=== PATIENT | female | born 1950 | race Caucasian/White ===

== ENCOUNTER 2017-08-24 05:45 | Emergency (ER) | payer MEDICARE ==
[~2017-08-24] VITALS: Ht 157.5 cm; Wt 78.3 kg
[2017-08-24 05:50] VITALS: BP 142/80
[2017-08-24] MEDS ORDERED: AZIT250T PO (06:10)
== END 2017-08-24 06:29 | disposition home or self-care (01) ==
LOC: ER 05:45
DX: R05 Cough (principal); R68.89 Other general symptoms and signs; J00 Acute nasopharyngitis [common cold]; E03.9 Hypothyroidism, unspecified; G89.29 Other chronic pain; Z88.5 Allergy status to narcotic agent; Z88.8 Allergy status to other drugs, medicaments and biological substances; Z79.899 Other long term (current) drug therapy
CPT/HCPCS: 99283

== ENCOUNTER 2018-10-22 19:06 | Emergency (ER) | payer MEDICARE ==
[~2018-10-22] VITALS: Ht 157.5 cm; Wt 70.9 kg
[~2018-10-22 19:06] MED LIST: AZIT250T PO
[2018-10-22 21:03] VITALS: BP 171/73
[2018-10-22] MEDS ORDERED: IBUP-1984 PO (22:50)
== END 2018-10-22 23:20 | disposition home or self-care (01) ==
LOC: ER 19:06
DX: S70.12XA Contusion of left thigh, initial encounter (principal); S40.022A Contusion of left upper arm, initial encounter; M54.5 Low back pain; E03.9 Hypothyroidism, unspecified; G89.29 Other chronic pain; Z88.6 Allergy status to analgesic agent; W18.30XA Fall on same level, unspecified, initial encounter; Y93.89 Activity, other specified; Y92.89 Other specified places as the place of occurrence of the external cause; Y99.8 Other external cause status
CPT/HCPCS: 73060; 73552; 99283

== ENCOUNTER 2022-08-20 09:27 | Emergency (ER) | payer OTHER ==
[~2022-08-20] VITALS: Ht 157.5 cm; Wt 70.0 kg
[2022-08-20 09:34] VITALS: BP 151/70
[2022-08-20] MEDS ORDERED: IBUP-1985 PO (12:21)
== END 2022-08-20 12:13 | disposition home or self-care (01) ==
LOC: ER 09:29
DX: S46.812A Strain of other muscles, fascia and tendons at shoulder and upper arm level, left arm, initial encounter (principal); X58.XXXA Exposure to other specified factors, initial encounter; Y93.89 Activity, other specified; Y92.89 Other specified places as the place of occurrence of the external cause; Y99.8 Other external cause status
CPT/HCPCS: 73030; 99283

== ENCOUNTER 2024-01-21 05:39 | Day surgery (SDC) | payer OTHER ==
[2024-01-12 11:36] LABS: BASOPHILS # (AUTO) 0.1 X10'3 (0-0.2); BASOPHILS % (AUTO) 0.7 % (0-1); EOSINOPHILS # (AUTO) 0.3 X10'3 (0-0.9); EOSINOPHILS % (AUTO) 3.2 % (0-6); LYMPHOCYTES % (AUTO) 21.3 % (21-51); MEAN CORPUSCULAR HEMOGLOBIN 28.1 PG (27.0-31.0); MEAN CORPUSCULAR HGB CONC 32.2 g/dL (33.0-36.5); MEAN CORPUSCULAR VOLUME 87.3 FL (78-98); MEAN PLATELET VOLUME 7.1 FL (7.4-10.4); NEUTROPHILS # (AUTO) 6.2 X10'3 (1.8-7.7); NEUTROPHILS % (AUTO) 64.8 % (42-75); PRE OP HEMATOCRIT 38.1 % (35.0-45.0); PRE OP HEMOGLOBIN 12.3 g/dL (12.0-16.0); PRE OP PLATELET COUNT 322 X10'3 (140-440); PRE OP WHITE BLOOD COUNT 9.6 10'3 (4.8-10.8); RED BLOOD COUNT 4.36 X10'6 (4.20-5.60); RED CELL DISTRIBUTION WIDTH 16.4 % (11.5-14.5)
[2024-01-12 11:37] LABS: BILIRUBIN,URINE NEGATIVE (Neg); CLARITY,URINE CLOUDY (Clear); COLOR,URINE YELLOW (Yellow); GLUCOSE, URINE NEGATIVE (Neg); KETONES,URINE TRACE mg/dl (Neg); LEUKOCYTE ESTERASE ,URINE MODERATE (Neg); NITRITES, URINE NEGATIVE (Neg); OCCULT BLOOD,URINE NEGATIVE (Neg); PROTEIN,URINE NEGATIVE (Neg); UROBILINOGEN,URINE 0.2 E.U/dL (0.2-1.0)
[2024-01-12 11:41] LABS: UA COLLECTION TYPE CLN CATCH MIDSTREAM
[2024-01-12 11:42] LABS: SQUAMOUS EPITHELIAL CELL,UR MODERATE /LPF (FEW)
[2024-01-12 11:43] LABS: BACTERIA,URINE 2+ /HPF (Neg); RBC,URINE 0-2 /HPF (0-2); WBC,URINE 20-30 /HPF (0-4)
[2024-01-12 11:51] LABS: ALBUMIN 3.3 G/DL (3.4-5.0); ALBUMIN/GLOBULIN RATIO 0.9 (1.1-1.5); ALKALINE PHOSPHATASE 72 IU/L (46-116); BLOOD UREA NITROGEN 45 MG/DL (7-18); BUN/CREATININE RATIO 25.4 (10.0-20.0); CHLORIDE 105 MMOL/L (99-107); CREATININE 1.77 MG/DL (0.40-0.90); PRE OP ALT 29 U/L (30-65); PRE OP ANION GAP 7 (8-16); PRE OP AST 20 U/L (10-37); PRE OP BILIRUB, TOTAL 0.5 MG/DL (0.0-1.0); PRE OP GLUCOSE 89 MG/DL (70-104); PRE OP POTASSIUM 4.6 MMOL/L (3.4-5.1); PRE OP SODIUM 138 MMOL/L (135-145); TOTAL CARBON DIOXIDE 25.8 MMOL/L (24-32); eGFR 28 ML/MIN
[2024-01-21] VITALS (12 sets, daily range): BP systolic 99–121; BP diastolic 46–63; PULSE 59–96; RESP 12–22; TEMP 97.8; O2SAT 91–98
[~2024-01-21] VITALS: Ht 154.9 cm; Wt 73.9 kg
[~2024-01-21 05:39] MED LIST changes: +ALEN70TA80 PO; +AMLO10TA13 PO; +ATOR10TA70 PO; -AZIT250T PO; +CEPH-585 PO; +ESCI20TA39 PO; +HYDR-3972 PO; +HYDR25TA4 PO; +HYDR50TA65 PO; +LEVO88TA7 PO; +LISI20TA28 PO; +LOPE2CAP PO; +LORA-269 PO; +OXYB5TAB21 PO; +SULF500T46 PO; +VIT D
[2024-01-21] MEDS: ringers solution, lacted 1,000 ML IV SCH ×2 (06:24→09:03)
[2024-01-21] MEDS: famotidine 20mg tablet PO ONE (06:24)
[2024-01-21] MEDS: cefazolin 2gm/D5W 100mL 100 ML IV ONE (06:25)
[2024-01-21] MEDS ORDERED: bacitracin 15gm ointment TP ONE (06:47)
[2024-01-21] MEDS ORDERED: BUPIVAcaine/PF 2.5mg/ml (0.25%) 10ml vial ONE (06:47)
[2024-01-21] MEDS ORDERED: ondansetron/PF 4mg/2ml inj ONE (07:14)
[2024-01-21] MEDS ORDERED: propofol inj 20 ML IV ONE (07:14)
[2024-01-21] MEDS ORDERED: fentaNYL/PF 50MCG/1 ML 2ML syringe ONE ×2 (07:14→08:10)
[2024-01-21] MEDS ORDERED: midazolam 1 mg/ML 2ml injection ONE (07:14)
[2024-01-21] MEDS ORDERED: sevoflurane 250ml liquid IH ONE (07:14)
[2024-01-21] MEDS ORDERED: LIDOcaine 2% (20mg/ml) 5ml vial ONE (07:14)
[2024-01-21] MEDS ORDERED: dexamethasone sod phosphate 4mg/ml inj. ONE (07:14)
[2024-01-21] MEDS ORDERED: ROPIVAcaine 0.5% (5mg/ml) 30ml vial ONE (07:14)
[2024-01-21] MEDS ORDERED: enalaprilat dihydrate 2.5mg/2ml vial IV PRN (07:40)
[2024-01-21] MEDS ORDERED: hydrALAZINE 20mg/ml inj. IV PRN (07:40)
[2024-01-21] MEDS ORDERED: HYDROmorphone/PF 0.2 MG/ML SYRINGE IV PRN ×2 (07:40)
[2024-01-21] MEDS ORDERED: ondansetron/PF 4mg/2ml inj IV PRN (07:40)
[2024-01-21] MEDS ORDERED: fentaNYL/PF 50MCG/1 ML 2ML syringe IV PRN ×2 (07:40)
[2024-01-21] MEDS: bacitracin 15gm ointment TP ONE (08:00)
== END 2024-01-21 10:34 | disposition home or self-care (01) ==
LOC: PAS 05:39
PROVIDERS: ATTEND Podiatrist Foot & Ankle Surgery
DX: M20.41 Other hammer toe(s) (acquired), right foot (principal); M21.621 Bunionette of right foot; I44.7 Left bundle-branch block, unspecified; I12.9 Hypertensive chronic kidney disease with stage 1 through stage 4 chronic kidney disease, or unspecified chronic kidney disease; E11.22 Type 2 diabetes mellitus with diabetic chronic kidney disease; N18.30 Chronic kidney disease, stage 3 unspecified; E03.9 Hypothyroidism, unspecified; K21.9 Gastro-esophageal reflux disease without esophagitis; E66.9 Obesity, unspecified; F32.A Depression, unspecified; Z86.73 Personal history of transient ischemic attack (TIA), and cerebral infarction without residual deficits; Z79.1 Long term (current) use of non-steroidal anti-inflammatories (NSAID); Z79.890 Hormone replacement therapy; Z79.891 Long term (current) use of opiate analgesic; Z79.899 Other long term (current) drug therapy; Z96.653 Presence of artificial knee joint, bilateral; Z98.890 Other specified postprocedural states; Z68.30 Body mass index [BMI] 30.0-30.9, adult; Z88.5 Allergy status to narcotic agent; Z88.8 Allergy status to other drugs, medicaments and biological substances
CPT/HCPCS: 28110; 28285; 36415; 73620; 80053; 81001; 82948; 85025; 87088; 93005; A6223; C1713; J0690; J1100; J2250; J2405; J2704; J2795; J3010; J3490; J7030; J7120; Z7506; Z7508; Z7512; 76000; A4618; A6253; A6449; A7000

== ENCOUNTER 2024-01-25 07:32 | Emergency (ER) | payer OTHER ==
[~2024-01-25] VITALS: Ht 154.9 cm; Wt 78.4 kg
[2024-01-25] MEDS: normal saline 1000ml 1,000 ML IV ONE (08:24)
[2024-01-25 09:06] LABS: BASOPHILS % (AUTO) 0.1 % (0-1); EOSINOPHILS # (AUTO) 0.1 X10'3 (0-0.9); EOSINOPHILS % (AUTO) 0.7 % (0-6); HEMATOCRIT 35.3 % (35.0-45.0); HEMOGLOBIN 11.4 g/dl (12.0-16.0); LYMPHOCYTES % (AUTO) 13.5 % (21-51); MEAN CORPUSCULAR HEMOGLOBIN 28.4 PG (27.0-31.0); MEAN CORPUSCULAR HGB CONC 32.3 g/dL (33.0-36.5); MEAN CORPUSCULAR VOLUME 87.9 FL (78-98); MEAN PLATELET VOLUME 6.9 FL (7.4-10.4); MONOCYTES # (AUTO) 1.9 X10'3 (0-0.9); MONOCYTES % (AUTO) 12.3 % (2-12); NEUTROPHILS # (AUTO) 11.1 X10'3 (1.8-7.7); NEUTROPHILS % (AUTO) 73.4 % (42-75); PLATELET COUNT 265 X10'3 (140-440); RED BLOOD COUNT 4.02 X10'6 (4.20-5.60); WHITE BLOOD COUNT 15.1 X10'3 (4.5-11.0)
[2024-01-25 10:27] LABS: ALANINE AMINOTRANSFERASE 21 U/L (12-78); ALBUMIN 2.8 G/DL (3.4-5.0); ALBUMIN/GLOBULIN RATIO 0.8 (1.1-1.5); ALKALINE PHOSPHATASE 68 IU/L (46-116); ANION GAP 5 (8-16); ASPARTATE AMINO TRANSFERASE 18 U/L (10-37); BILIRUBIN,TOTAL 0.8 MG/DL (0.1-1.0); BLOOD UREA NITROGEN 23 MG/DL (7-18); BUN/CREATININE RATIO 15.4 (10.0-20.0); CALCIUM 8.7 MG/DL (8.5-10.1); CHLORIDE 105 MMOL/L (99-107); CREATININE 1.49 MG/DL (0.40-0.90); GLUCOSE 115 MG/DL (70-104); POTASSIUM 3.7 MMOL/L (3.5-5.1); SODIUM 137 MMOL/L (135-145); TOTAL CARBON DIOXIDE 26.7 MMOL/L (24-32); TOTAL PROTEIN 6.4 G/DL (6.4-8.2); eCRCL 24 ML/MIN; eGFR 34 ML/MIN
[2024-01-25 10:31] LABS: CREATINE KINASE 35 U/L (26-192)
[2024-01-25] MEDS ORDERED: ASPI-1265 PO (10:42)
[2024-01-25 11:10] LABS: BILIRUBIN,URINE NEGATIVE (Neg); CLARITY,URINE CLEAR (Clear); COLOR,URINE YELLOW (Yellow); GLUCOSE, URINE NEGATIVE (Neg); KETONES,URINE NEGATIVE (Neg); LEUKOCYTE ESTERASE ,URINE SMALL (Neg); NITRITES, URINE NEGATIVE (Neg); OCCULT BLOOD,URINE NEGATIVE (Neg); PROTEIN,URINE NEGATIVE (Neg); UROBILINOGEN,URINE 0.2 E.U/dL (0.2-1.0)
[2024-01-25 11:12] LABS: UA COLLECTION TYPE CLN CATCH MIDSTREAM
[2024-01-25 11:15] LABS: BACTERIA,URINE NONE SEEN /HPF (Neg); MUCUS STRANDS FEW /LPF (Neg); RBC,URINE NONE SEEN /HPF (0-2); SQUAMOUS EPITHELIAL CELL,UR FEW /LPF (FEW)
[2024-01-25 11:43] VITALS: TEMP 98.1
[2024-01-25] MEDS ORDERED: CEPH-585 PO (11:44)
[2024-01-25] MEDS: cephalexin 250mg capsule PO ONE (11:48)
[2024-01-25 14:27] VITALS: BP 142/81; PULSE 68; RESP 14; O2SAT 97
== END 2024-01-25 14:29 | disposition home or self-care (01) ==
LOC: ER 07:33
DX: N39.0 Urinary tract infection, site not specified (principal); E86.0 Dehydration; E03.9 Hypothyroidism, unspecified; G89.29 Other chronic pain; F32.A Depression, unspecified; Z88.6 Allergy status to analgesic agent; Z88.5 Allergy status to narcotic agent; Z79.899 Other long term (current) drug therapy; Z79.82 Long term (current) use of aspirin; Z79.2 Long term (current) use of antibiotics
CPT/HCPCS: 36415; 80053; 81001; 82550; 83605; 85025; 87077; 87088; 87186; 93005; 96360; 99285; J7030